=== PATIENT | female | born 2000 | race Caucasian/White ===

== ENCOUNTER 2022-02-25 11:06 | Day surgery (SDC) | payer SELFPAY ==
[2022-02-23 14:07] VITALS: BMI 27.3
[2022-02-25] MEDS ORDERED: PROPOFOL 20 ML ONE ×3 (13:40)
[2022-02-25] MEDS ORDERED: ROCURONIUM BROMIDE 50 MG/5 ML SYRINGE ONE ×2 (13:40→16:04)
[2022-02-25] MEDS ORDERED: MIDAZOLAM HCL 2 MG/2 ML SINGLE DOSE VIAL ONE (13:41)
[2022-02-25] MEDS ORDERED: LIDOCAINE HCL 1%, 10 MG/ML (20ML VIAL) ONE (13:52)
[2022-02-25] MEDS ORDERED: EPINEPHrine/PF 1 MG/1 ML (1:1,000) AMPULE ONE (14:22)
[2022-02-25] MEDS ORDERED: DEXAMETHASONE SOD PHOSPHATE 4 MG/1 ML VIAL ONE (15:13)
[2022-02-25] MEDS ORDERED: ONDANSETRON 4 MG/2 ML VIAL ONE (15:13)
[2022-02-25] MEDS ORDERED: KETOROLAC TROMETHAMINE 30 MG/1 ML VIAL ONE (15:13)
[2022-02-25] MEDS ORDERED: ceFAZolin SODIUM 1 GM VIAL ONE (15:13)
[2022-02-25] MEDS ORDERED: BACITRACIN 15 GM TUBE TOPICAL OINTMENT TP ONE (16:58)
[2022-02-25] MEDS ORDERED: oxyCODONE HCL 5 MG TABLET PO PRN (17:40)
[2022-02-25] MEDS ORDERED: ACETAMINOPHEN 1000 MG/100 ML BAG IVPB ONE (17:40)
[2022-02-25] MEDS ORDERED: ONDANSETRON 4 MG/2 ML VIAL IVPUSH PRN (17:40)
[2022-02-25] MEDS ORDERED: ACETAMINOPHEN INJECTION 100 ML IVPB ONE (18:01)
[2022-02-25 18:44] VITALS: TEMP 97.4
[2022-02-25 19:35] VITALS: BP 125/64; PULSE 84
== END 2022-02-25 19:30 | disposition home or self-care (01) ==
LOC: FASU 11:06
PROVIDERS: ATTEND Surgery
PROC: 0J083ZZ Alteration of Abdomen Subcutaneous Tissue and Fascia, Percutaneous Approach (ICD-10-PCS; principal; 2022-02-25 14:39)
DX: Z41.1 Encounter for cosmetic surgery (principal)
CPT/HCPCS: 84703; 94760

== ENCOUNTER 2022-02-27 03:40 | Emergency (ER) | payer BC ==
[2022-02-27 03:49] VITALS: BP 115/77; PULSE 95; TEMP 98.8; BMI 27.1
[2022-02-27] MEDS ORDERED: SODIUM CHLORIDE 1,000 ML IV ONE (03:51)
[2022-02-27 05:31] LABS: BASO % 0.2 % (0-2.0); EOS % 1.3 % (0-4.5); HEMATOCRIT 34.7 % (32.4-45.2); HEMOGLOBIN 11.3 GM/dL (10.7-15.3); MCH 28.2 pg (25.7-33.7); MCHC 32.7 g/dl (32.0-36.0); MEAN CELL VOLUME 86.3 fl (80-96); MEAN PLT VOLUME 8.8 fl (7.5-11.1); MONO % 7.7 % (3.8-10.2); NEUT % 67.8 % (42.8-82.8); PLATELET COUNT 253 10^3/uL (134-434); RBC 4.02 M/mm3 (3.60-5.2); RDW 13.9 % (11.6-15.6); WHITE BLOOD COUNT 11.9 K/mm3 (4.0-10.0)
[2022-02-27 05:37] LABS: INR 1.11 (0.83-1.09); PROTHROMBIN TIME (PATIENT) 12.8 SEC (9.7-13.0)
[2022-02-27 05:38] LABS: ALBUMIN 3.4 g/dl (3.4-5.0); BILIRUBIN,TOTAL 0.5 mg/dL (0.2-1); BLOOD UREA NITROGEN 12.4 mg/dL (7-18); CALCIUM 8.3 mg/dL (8.5-10.1); CREATININE 0.6 mg/dL (0.55-1.3); TOT PROT 6.5 g/dl (6.4-8.2)
== END 2022-02-27 07:35 | disposition home or self-care (01) ==
LOC: FER 03:40 → SUPCPDRO 03:40 → FER 07:35
DX: F41.9 Anxiety disorder, unspecified (principal)
CPT/HCPCS: 36415; 71275-TC; 80053; 81025; 85025; 85610; 99284-25; Q9967